=== PATIENT | male | born 2000 | race Hispanic/Latino ===

== ENCOUNTER 2023-05-28 20:23 | Emergency (ER) | payer BC ==
[~2023-05-28] VITALS: Ht 157.5 cm; Wt 172.4 kg
[2023-05-28 20:48] LABS: SARS-CoV-2, RNA, NAAT NEGATIVE SARS CoV-2 (NEGATIVE)
[2023-05-28 20:54] LABS: INFLUENZA TYPE A Negative For Type A (NEGATIVE); INFLUENZA TYPE B Negative For Type B (NEGATIVE)
[2023-05-28] MEDS ORDERED: BENZ200C53 PO (23:48)
[2023-05-28] MEDS ORDERED: GUAI-776 PO (23:48)
[2023-05-28 23:50] VITALS: BP 132/70; PULSE 80; RESP 14; O2SAT 97
== END 2023-05-29 00:12 | disposition home or self-care (01) ==
LOC: EDH 20:23
DX: J00 Acute nasopharyngitis [common cold] (principal); I10 Essential (primary) hypertension; J45.909 Unspecified asthma, uncomplicated; Z20.822 Contact with and (suspected) exposure to COVID-19
CPT/HCPCS: 99283; 87635; 87804 ×2; C9803